=== PATIENT | female | born 2000 | race Caucasian/White ===

== ENCOUNTER 2023-03-22 17:22 | Emergency (ER) | payer OTHER, SELFPAY ==
[2023-03-22 17:25] VITALS: BP 119/85; PULSE 100; RESP 18; TEMP 36.9; O2SAT 99; BMI 21.5
--- NOTE | 2023-03-22 18:01 | ED.GENADUL1 ---
HPI - General Adult General Chief complaint: Recheck/Abnormal Lab/Rx Stated complaint: Possible Wants Verified Time Seen by Provider: 03/22/23 17:25 Source: patient Mode of arrival: walk-in Limitations: no limitations History of Present Illness HPI narrative: Patient is a 22-year-old male who is here because she would like another test to confirm her outpatient urine teest that was positive today. Patient's friend is at bedside. We can talk but everything in front of her friend. Patient is a currently. Patient did do a outpatient test that was positive. Patient is not trying to get . Patient has no PUBLIC TRANSPORTATION INSPECTOR, she has no PCP. Patient has some minimal cramping, no vaginal bleeding, discharge or odor. No urinary frequency Urgency or burning. There is constipation. Patient was hoping to confirm her and to see how far long she is. Katherine RADFORD was at bedside during the entire HPI and physical exam. . All systems are negative except as noted/marked. All systems reviewed and otherwise negative. . Nurses note and vital signs reviewed and patient is not hypoxic. General: The patient appears well and in no apparent distress. Patient is resting comfortably on cart. Patient is not toxic, lethargic, or listless Skin: Warm, dry, no pallor noted. There is no rash noted. No petechiae, purpura. Head: Normocephalic, atraumatic Eye: Normal conjunctiva, no drainage, EOMI. PERRL Ears, Nose, Mouth, and Throat: oral mucosa is moist. Cardiovascular: Regular Rate and Rhythm, Respiratory: Patient is in no distress, no accessory muscle use, lungs are clear to auscultation, no wheezing, rales or rhonchi Back: non-tender, GI: soft, no tenderness Musculoskeletal: Patient has full range of motion of all of the extremities, no motor, sensory, or focal neurological deficits Neurological: A&O x3, normal speech Psychiatric: Cooperative Related Data Previous Rx's Medication Instructions Recorded ondansetron 4 mg disintegrating 4 mg PO Q4H PRN nausea and 03/22/23 tablet vomiting 3 days #6 tabs Allergies Allergy/AdvReac Type Severity Reaction Status Date / Time No Known Drug Allergies Allergy Verified 03/22/23 17:27 Exam Constitutional Vital Signs, click to edit/add: Last Vital Signs Temp 98.5 F 03/22/23 17:25 Pulse 100 H 03/22/23 17:25 Resp 18 03/22/23 17:25 BP 119/85 03/22/23 17:25 Pulse Ox 99 03/22/23 17:25 O2 Del Method Room Air 03/22/23 17:25 Course Vital Signs Vital signs: Vital Signs Temperature 98.5 F 03/22/23 17:25 Pulse Rate 100 H 03/22/23 17:25 Respiratory Rate 18 03/22/23 17:25 Blood Pressure 119/85 03/22/23 17:25 Pulse Oximetry 99 03/22/23 17:25 Oxygen Delivery Method Room Air 03/22/23 17:25 Temperature 98.5 F 03/22/23 17:25 Pulse Rate 100 H 03/22/23 17:25 Respiratory Rate 18 03/22/23 17:25 Blood Pressure 119/85 03/22/23 17:25 Pulse Oximetry 99 03/22/23 17:25 Oxygen Delivery Method Room Air 03/22/23 17:25 Medical Decision Making MDM Narrative Medical decision making narrative: Katherine RADFORD was a bedside during the entire HPI, physical exam and discharge discussion. Education on what the emergency room is available for, and what emergent symptoms or conditions would qualify for any type of testing through urine, blood, or ultrasound were discussed at bedside with patient and her friend. Patient has no acute indication to confirm with a urine sample or a blood test. No indication for any radiographic testing. Patient's having minimal cramping, mild nausea, no vaginal complaints. Patient's last menses Was approximately February 15. Patient is a . Patient was sent home with a prescription for Zofran to help with nausea needed. Patient understands importance of taking vitamins. Patient understands only to use Tylenol. Education was written on discharge paperwork. Patient was told that she can follow up with [facility], health department, and PUBLIC TRANSPORTATION INSPECTOR was referred to her. Discharge Plan Discharge Chief Complaint: Recheck/Abnormal Lab/Rx Clinical Impression: Nausea, Fear of developing complications of Patient Disposition: Home, Self-Care Time of Disposition Decision: 17:59 Condition: Fair Prescriptions / Home Meds: New ondansetron 4 mg tablet,disintegrating 4 mg PO Q4H PRN (Reason: nausea and vomiting) 3 Days Qty: 6 0RF Instructions: (ED), Acute Nausea and Vomiting (ED) Additional Instructions: Start taking vitamins. You may perform a outpatient test again if he would like. If he ever have any pain, cramping, only take Tylenol. Nausea medication has been prescribed to you to help with her symptoms. PUBLIC TRANSPORTATION INSPECTOR has been referred to. He may establish a PCP with health department, or [facility] in the County you live in Stand Alone Forms: Portal Instructions Referrals: Luis F Johnson DO [Physician] - 1 week Physician,Non-Staff, [Primary Care Provider] - 1 week Patria Hernandez MD [Physician] - 1 week
== END 2023-03-22 18:10 | disposition home or self-care (01) ==
PROVIDERS: Emergency Provider Emergency Medicine
DX: O26.899 Other specified pregnancy related conditions, unspecified trimester (principal); R11.0 Nausea
CPT/HCPCS: 99283

== ENCOUNTER 2023-06-28 15:53 | Emergency (ER) | payer OTHER, SELFPAY ==
[2023-06-28 16:00] VITALS: BP 112/74; PULSE 92; RESP 14; TEMP 36.7; O2SAT 99; BMI 25.4
[2023-06-28 17:36] LABS: Bilirubin Urine NEGATIVE (NEGATIVE); Blood Urine TRACE-I (NEGATIVE); Clarity Urine CLEAR (CLEAR); Color Urine LT. YELLOW (YELLOW); Glucose Urine UA NEGATIVE (NEGATIVE); Ketones Urine NEGATIVE (NEGATIVE); Leukocyte Esterase Urine TRACE (NEGATIVE); Nitrite Urine NEGATIVE (NEGATIVE); Protein Urine NEGATIVE (NEG/TRACE); pH Urine 7.5 (5.0-9.0)
[2023-06-28 17:39] LABS: HCG Qualitative Urine* POSITIVE (NEGATIVE)
[2023-06-28 17:53] LABS: Bacteria Urine SMALL #/HPF (NONE SEEN); Crystals Seen? Seen #/HPF (None Seen); Mucus Urine TRACE (NONE SEEN); Squamous Epithelial Cell Urine FEW #/LPF (NONE/RARE)
[2023-06-28 17:54] LABS: Amorphous Sediment Urine MODERATE; Cast Seen? SEEN #/LPF (NONE SEEN); Hyaline Casts Urine RARE; Urine Culture Indicated YES
--- NOTE | 2023-07-19 13:03 | ED_ITS ---
Documented by User: Felicia Glez 07/19/23 13:03 HPI - General Adult General Chief complaint: OB/Uterine Contractions Stated complaint: poss yeast infection Time Seen by Provider: 06/28/23 16:05 Source: patient Source information: pt left ama, not seen Mode of arrival: walk-in Related Data Previous Rx's Medication Instructions Recorded ondansetron 4 mg disintegrating 4 mg PO Q4H PRN nausea and 03/22/23 tablet vomiting 3 days #6 tabs Allergies Allergy/AdvReac Type Severity Reaction Status Date / Time No Known Drug Allergies Allergy Verified 03/22/23 17:27 Exam Constitutional Vital Signs, click to edit/add: Last Vital Signs Temp 98.0 F 06/28/23 16:00 Pulse 92 H 06/28/23 16:00 Resp 14 06/28/23 16:00 BP 112/74 06/28/23 16:00 Pulse Ox 99 06/28/23 16:00 O2 Del Method Room Air 06/28/23 16:00 Course Vital Signs Vital signs: Vital Signs Temperature 98.0 F 06/28/23 16:00 Pulse Rate 92 H 06/28/23 16:00 Respiratory Rate 14 06/28/23 16:00 Blood Pressure 112/74 06/28/23 16:00 Pulse Oximetry 99 06/28/23 16:00 Oxygen Delivery Method Room Air 06/28/23 16:00 Temperature 98.0 F 06/28/23 16:00 Pulse Rate 92 H 06/28/23 16:00 Respiratory Rate 14 06/28/23 16:00 Blood Pressure 112/74 06/28/23 16:00 Pulse Oximetry 99 06/28/23 16:00 Oxygen Delivery Method Room Air 06/28/23 16:00 Medical Decision Making Lab Data Labs: Lab Results 06/28/23 Range/Units 16:30 Urine Color Lt. yellow (YELLOW) Urine Clarity Clear (CLEAR) Urine pH 7.5 (5.0-9.0) Ur Specific [place] 1.020 (1.005-1.025) Urine Protein Negative (NEG/TRACE) mg/dL Urine Glucose (UA) Negative (NEGATIVE) mg/dL Urine Ketones Negative (NEGATIVE) mg/dL Urine Occult Blood Trace-i (NEGATIVE) Urine Nitrite Negative (NEGATIVE) Urine Bilirubin Negative (NEGATIVE) Urine Urobilinogen 1.0 (0.2-1.0) EU/dL Ur Leukocyte Esterase Trace A (NEGATIVE) Urine RBC 2-5 A (0-2) #/HPF Urine WBC 2-5 A (NONE SEEN) #/HPF Ur Squamous Epith Cells Few A (NONE/RARE) #/LPF Urine Crystals Seen A (None Seen) #/HPF Amorphous Sediment Moderate Urine Bacteria Small A (NONE SEEN) #/HPF Urine Casts Seen A (NONE SEEN) #/LPF Hyaline Casts Rare Urine Mucus Trace A (NONE SEEN) Ur Culture Indicated? Yes Urine HCG, Qual Positive A (NEGATIVE) Discharge Plan Discharge Patient Disposition: Left Without Being Seen Discharge Date/Time: 06/28/23 17:16 Documented by User: Luis Morales MD 07/26/23 16:54 HPI - General Adult General Chief complaint: OB/Uterine Contractions Stated complaint: poss yeast infection Time Seen by Provider: 06/28/23 16:05 Related Data Previous Rx's Medication Instructions Recorded ondansetron 4 mg disintegrating 4 mg PO Q4H PRN nausea and 03/22/23 tablet vomiting 3 days #6 tabs Allergies Allergy/AdvReac Type Severity Reaction Status Date / Time No Known Drug Allergies Allergy Verified 03/22/23 17:27 Exam Constitutional Vital Signs, click to edit/add: Last Vital Signs Temp 98.0 F 06/28/23 16:00 Pulse 92 H 06/28/23 16:00 Resp 14 06/28/23 16:00 BP 112/74 06/28/23 16:00 Pulse Ox 99 06/28/23 16:00 O2 Del Method Room Air 06/28/23 16:00 Course Vital Signs Vital signs: Vital Signs Temperature 98.0 F 06/28/23 16:00 Pulse Rate 92 H 06/28/23 16:00 Respiratory Rate 14 06/28/23 16:00 Blood Pressure 112/74 06/28/23 16:00 Pulse Oximetry 99 06/28/23 16:00 Oxygen Delivery Method Room Air 06/28/23 16:00 Temperature 98.0 F 06/28/23 16:00 Pulse Rate 92 H 06/28/23 16:00 Respiratory Rate 14 06/28/23 16:00 Blood Pressure 112/74 06/28/23 16:00 Pulse Oximetry 99 06/28/23 16:00 Oxygen Delivery Method Room Air 06/28/23 16:00 Medical Decision Making MDM Narrative Medical decision making narrative: pt left without being seen.......I never saw this pt Lab Data Labs: Lab Results 06/28/23 Range/Units 16:30 Urine Color Lt. yellow (YELLOW) Urine Clarity Clear (CLEAR) Urine pH 7.5 (5.0-9.0) Ur Specific [place] 1.020 (1.005-1.025) Urine Protein Negative (NEG/TRACE) mg/dL Urine Glucose (UA) Negative (NEGATIVE) mg/dL Urine Ketones Negative (NEGATIVE) mg/dL Urine Occult Blood Trace-i (NEGATIVE) Urine Nitrite Negative (NEGATIVE) Urine Bilirubin Negative (NEGATIVE) Urine Urobilinogen 1.0 (0.2-1.0) EU/dL Ur Leukocyte Esterase Trace A (NEGATIVE) Urine RBC 2-5 A (0-2) #/HPF Urine WBC 2-5 A (NONE SEEN) #/HPF Ur Squamous Epith Cells Few A (NONE/RARE) #/LPF Urine Crystals Seen A (None Seen) #/HPF Amorphous Sediment Moderate Urine Bacteria Small A (NONE SEEN) #/HPF Urine Casts Seen A (NONE SEEN) #/LPF Hyaline Casts Rare Urine Mucus Trace A (NONE SEEN) Ur Culture Indicated? Yes Urine HCG, Qual Positive A (NEGATIVE) Discharge Plan Discharge Patient Disposition: Left Without Being Seen Discharge Date/Time: 06/28/23 17:16
== END 2023-06-28 17:16 | disposition left against medical advice (07) ==
LOC: ER 16:07
PROVIDERS: Physician Assistant; Emergency Provider Emergency Medicine
DX: O26.892 Other specified pregnancy related conditions, second trimester (principal); N89.8 Other specified noninflammatory disorders of vagina; Z3A.18 18 weeks gestation of pregnancy; Z53.21 Procedure and treatment not carried out due to patient leaving prior to being seen by health care provider
CPT/HCPCS: 81001; 84703; 87086; 99283